=== PATIENT | male | born 1985 | race Caucasian/White ===

== ENCOUNTER 2017-10-23 09:03 | Emergency (ER) | payer SELFPAY ==
[~2017-10-23] VITALS: Ht 167.6 cm; Wt 79.1 kg
[~2017-10-23 09:03] MED LIST: BACTRIM,SEPT1 TABLET PO; KEFLEX500 MG PO; NAPROSYN500 MG PO; VICODIN,LORT1 TABLET PO
[2017-10-23 09:49] LABS: BASOPHIL (%) 0.1 % (0-1); EOSINOPHIL (%) 0 % (0-5); HEMATOCRIT 44.6 % (38.0-50.0); HEMOGLOBIN 16.1 G/DL (12.5-16.6); IMMATURE GRANULOCYTE (%) 0.3 % (0.0-0.7); LYMPHOCYTE (%) 9.5 % (15-42); LYMPHOCYTE COUNT 0.9 K/uL (1.0-2.8); MCH 32.2 PG (29.0-34.0); MCHC 36.1 G/DL (30.0-36.0); MCV 89.2 FL (86-99); MONOCYTE (%) 5.8 % (3-12); MONOCYTE COUNT 0.5 K/uL (0-0.8); NEUTROPHIL (%) 84.3 % (45-76); NEUTROPHIL COUNT 7.8 K/uL (1.8-6.4); PLATELET COUNT 197 K/uL (156-360); RBC DIS.WIDTH-CV 13.2 % (11.8-14.6); RBC DIS.WIDTH-SD 43.7 % (39-53); WHITE BLOOD COUNT 9.2 K/uL (4.1-10.2)
[2017-10-23 09:59] LABS: CHLORIDE 104 mEq/L (99-109); POTASSIUM 4.5 mEq/L (3.7-5.4); SODIUM 140 mEq/L (136-147)
[2017-10-23 10:01] LABS: GLUCOSE 106 mg/dL (70-99)
[2017-10-23 10:02] LABS: TOTAL PROTEIN 6.9 g/dL (6.4-8.3)
[2017-10-23 10:02] LABS: APPEARANCE CLEAR ((CLEAR)); BILIRUBIN NEGATIVE; BLOOD NEGATIVE; COLOR YELLOW ((YELLOW)); GLUCOSE (STRIP) NEGATIVE; KETONES 80; LEUKOCYTES NEGATIVE; NITRITE NEGATIVE; PROTEIN (STRIP) 30; SPECIFIC GRAVITY 1.033 (1.000-1.030); UROBILINOGEN 0.2 MG/DL (0.2-1.0)
[2017-10-23 10:03] LABS: TOTAL BILIRUBIN 0.3 mg/dL (0.0-1.0)
[2017-10-23 10:05] LABS: ALKALINE PHOSPHATASE 62 IU/L (3-129); CREATININE 1.1 mg/dL (0.6-1.3); GFR ESTIMATE (CALCULATED) > 59 mL/min/ (58.99-99999)
[2017-10-23 10:06] LABS: UREA NITROGEN (BUN) 6 mg/dL (9-23)
[2017-10-23 10:07] LABS: AST (GOT) 31 IU/L (2-34)
[2017-10-23 10:08] LABS: ALT (GPT) 30 IU/L (3-49)
[2017-10-23 10:16] LABS: MONOSPOT (MONONUCLEOSIS SEROL) NEGATIVE
[2017-10-23] MEDS ORDERED: ZOFRAN ODT4 MG PO (10:59)
[2017-10-23] MEDS ORDERED: TORADOL10 MG PO (10:59)
[2017-10-23 11:17] VITALS: BP 126/86
== END 2017-10-23 11:17 | disposition home or self-care (01) ==
LOC: EME 09:03
PROVIDERS: Emergency Medicine
DX: R51 Headache (principal); R11.2 Nausea with vomiting, unspecified; Z53.20 Procedure and treatment not carried out because of patient's decision for unspecified reasons
CPT/HCPCS: 70450; 80053; 81003; 83605; 85025; 86308; 87502; 99281; 99285; J0780; J1200; J7030